=== PATIENT | female | born 1945 | race Hispanic/Latino ===

== ENCOUNTER 2017-06-04 06:12 | Inpatient (IN) | payer MEDICARE, MEDICAID ==
[2017-06-04] MEDS ORDERED: niCARdipine 20MG In NaCl 20 MG/200 ML BAG ONE (06:39)
[2017-06-04 06:46] LABS: Hematocrit 36.9 % (36.0-47.0); Mean Platelet Volume 8.5 fL (7.4-10.4); Red Blood Cell (RBC) Count 3.73 mill/uL (4.20-5.40); White Blood Cell (WBC) Count 10.4 thou/uL (4.8-10.8)
[2017-06-04 06:49] LABS: PTT 39.2 SEC (22.9-36.1)
[2017-06-04 06:55] LABS: ALT (SGPT) 12 U/L (8-55); AST (SGOT) 21 U/L (5-34); Alkaline Phosphatase 105 U/L (40-150); Anion Gap 14 mmol/L (10-20); BUN (Urea Nitrogen) 8 mg/dL (9.8-20.1); Bilirubin, Total 1.2 mg/dL (0.2-1.2); CK (CPK) 52 U/L (29-168); Calc. Creatinine Clearance 0 mL/min (70-130); Calcium 8.6 mg/dL (7.8-10.44); Carbon Dioxide 18 mmol/L (23-31); Chloride 108 mmol/L (98-107); Estimated GFR-MDRD 82; Globulin 4.3 g/dL (2.4-3.5); Protein, Total 7.1 g/dL (6.0-8.3)
[2017-06-04 07:00] LABS: Troponin I Less than 0.010 ng/mL (< 0.028)
[2017-06-04] MEDS ORDERED: Ondansetron HCl/PF 4 MG/2 ML Vial IVP PRN ×2 (07:00→10:51)
[2017-06-04] MEDS ORDERED: Ondansetron ODT 4 MG TAB SL PRN (07:00)
[2017-06-04 07:03] LABS: Band 2 % (5-11); Neutrophil 44 % (42-75)
[2017-06-04 07:31] LABS: Magnesium 1.4 mg/dL (1.6-2.6)
[2017-06-04 07:39] LABS: Phosphorus 1.7 mg/dL (2.3-4.7)
[2017-06-04 08:12] LABS: Bilirubin Negative (Negative); Blood, Urine Negative (Negative); Glucose, Urine (Dipstick) Negative (Negative); Ketone, Urine Trace mg/dL (Negative); Nitrite Negative (Negative); Protein, Urine (Dipstick) Negative (Neg-Trace)
--- NOTE | 2017-06-04 08:12 | CT ---
PRELIMINARY REPORT/[facility]/EMERGENCY AFTER HOURS PROCEDURE: EXAM: CT Head Without Intravenous Contrast EXAM DATE/TIME: Exam ordered 06/04/2017 6:17 AM CLINICAL HISTORY: 71 years old, female; Signs and symptoms; Weakness, facial; Patient HX: 71 presents to ed with left sided weakness and facial droop. Ems states that pt was last seen normal by family 15 min prior to t heir arrival. Family reports that pt is normally conversational but was unable to speak to them. TECHNIQUE: Axial computed tomography images of the head/brain without intravenous contrast. COMPARISON: No relevant prior studies available. FINDINGS: Brain: Normal. No hemorrhage. No significant white matter disease. No edema. Ventricles: Normal. No ventriculomegaly. Bones/joints: Normal. No acute fracture. Soft tissues: Normal. Sinuses: Unremarkable as visualized. No acute sinusitis. Mastoid air cells: Unremarkable as visualized. No mastoid effusion. IMPRESSION: No acute intracranial hemorrhage. Findings were discussed with Frank Ling at 06/04/2017 6:26 AM CDT. Thank you for allowing us to participate in the care of your patient. Dictated and Authenticated by: Baldomero Manuel MD 06/04/2017 6:26 AM Central Time ([place] \[place]\ [place]) FINAL REPORT CT BRAIN WITHOUT CONTAST: I agree with the preliminary report given by Dr. Baldomero Manuel of [facility]. POS: [facility]
--- NOTE | 2017-06-04 08:20 | CT ---
PRELIMINARY REPORT/[facility]/EMERGENCY AFTER HOURS PROCEDURE: Addendum created by Baldomero Manuel MD on 06/04/2017 6:52 AM Central Time ([place]) Findings were discussed with Frank Ling at 06/04/2017 6:52 AM CDT. Initial Report created on 06/04/2017 6:49 AM Central Time ([place]) EXAM: CT Brain Perfusion With Intravenous Contrast CLINICAL HISTORY: 71 years old, female; Signs and symptoms; Weakness, facial; Patient HX: stroke activation er 9; 71 presents to ed with left sided weakness and facial droop. Ems states that pt was last seen normal by family 15 min prior to their arrival. Family reports that pt is normally conversational but was unable to speak to them. TECHNIQUE: Axial computed tomography images of the brain with intravenous contrast using cerebral perfusion pro tocol. Post-processing parametric maps were created and reviewed. These include cerebral blood flow, cerebral blood volume and mean transit time. Coronal reformatted images were created and reviewed. CONTRAST: 50 mL of ISOVUE 370 administered intravenously. COMPARISON: No relevant prior studies available. FINDINGS: Cerebral blood flow: Normal. Symmetric with no defects. Cerebral blood volume: Normal. Symmetric. Mean transit time: Normal. No delayed perfusion. Brain: Normal. No hemorrhage. No edema. Normal enhancement. Ventricles: Normal. No ventriculomegaly. Bones/joints: No acute fracture. Soft tissues: Normal. Sinuses: Unremarkable as visualized. No acute sinusitis. Mastoid air cells: Unremarkable as visualized. No mastoid effusion. IMPRESSION: Normal brain perfusion CT. EXAM: CT Angiography Neck With Intravenous Contrast CLINICAL HISTORY: 71 years old, female; Signs and symptoms; Weakness, facial; Patient HX: stroke activation er 9; 71 presents to ed with left sided weakness and facial droop. Ems states that pt was last seen normal by family 15 min prior to their arrival. Family reports that pt is normally conversational but was unable to speak to them. TECHNIQUE: Axial computed tomographic angiography images of the neck with intravenous contrast using CT angiogr aphy protocol. Coronal reformatted images were created and reviewed. CONTRAST: 50 mL of ISOVUE 370 administered intravenously. COMPARISON: No relevant prior studies available. FINDINGS: VASCULATURE: Right common carotid artery: Normal. No significant stenosis. No dissection or occlusion. Right internal carotid artery: Normal. Extracranial segment is patent with no significant stenosis. No dissection or occlusion. Right external carotid artery: Normal. No occlusion. Right vertebral artery: Normal. No significant stenosis. No dissection or occlusion. Left common carotid artery: Normal. No significant stenosis. No dissection or occlusion. Left internal carotid artery: Normal. Extracranial segment is patent with no significant stenosis. N o dissection or occlusion. Left external carotid artery: Normal. No occlusion. Left vertebral artery: Normal. No significant stenosis. No dissection or occlusion. NECK: Bones/joints: No acute fracture. No dislocation. Soft tissues: Unremarkable as visualized. No mass. CAROTID STENOSIS REFERENCE USING NASCET CRITERIA: % ICA stenosis = (1 - narrowest ICA diameter/diameter of distal cervical ICA) x 100. Mild - <50% stenosis. Moderate - 50-69% stenosis. Severe - 70-94% stenosis. Near occlusion - 95-99% stenosis. Occluded - 100% stenosis. IMPRESSION: Normal neck CTA. EXAM: CT Angiography Head With Intravenous Contrast EXAM DATE/TIME: Exam ordered 06/04/2017 6:22 AM CLINICAL HISTORY: 71 years old, female; Signs and symptoms; Weakness, facial; Patient HX: stroke activation er 9; 71 presents to ed with left sided weakness and facial droop. Ems states that pt was last seen normal by family 15 min prior to their arrival. Family reports that pt is normally conversational but was unable to speak to them. TECHNIQUE: Axial computed tomographic angiography images of the head with intravenous contrast using CT angiogr aphy protocol. CONTRAST: 50 mL of ISOVUE 370 administered intravenously. COMPARISON: No relevant prior studies available. FINDINGS: Right internal carotid artery: No acute findings. Intracranial segment is patent with no significant stenosis. No aneurysm. Right anterior cerebral artery: Normal. No occlusion or significant stenosis. No aneurysm. Right middle cerebral artery: Normal. No occlusion or significant stenosis. No aneurysm. Right posterior cerebral artery: Normal. No occlusion or significant stenosis. No aneurysm. Right vertebral artery: Unremarkable as visualized. Left internal carotid artery: No acute findings. Intracranial segment is patent with no significant stenosis. No aneurysm. Left anterior cerebral artery: Normal. No occlusion or significant stenosis. No aneurysm. Left middle cerebral artery: Normal. No occlusion or significant stenosis. No aneurysm. Left posterior cerebral artery: Normal. No occlusion or significant stenosis. No aneurysm. Left vertebral artery: Unremarkable as visualized. Basilar artery: Normal. No occlusion or significant stenosis. No aneurysm. IMPRESSION: Normal head CTA. Thank you for allowing us to participate in the care of your patient. Dictated and Authenticated by: Baldomero Manuel MD 06/04/2017 6:49 AM Central Time ([place] \[place]\ [place]) FINAL REPORT PRE AND POSTCONTRAST CTA IMAGES CAROTID AND BRAIN: DATE: 06/04/17. HISTORY: Stroke, left-sided weakness, and facial droop. FINDINGS: Contrast-enhanced CTA of the carotid and intracranial structures performed. Two-D and 3D reconstruc kavita images performed on an independent 3D work station. I concur with the dictation from [facility]. No significant evidence of aortic or carotid or intracranial vascular abnormality seen. Normal flow is seen in these major intracranial vessels. Vertebrobasilar arteries are unremarkable. Brain perfusion is unremarkable with no significant evidence of perfusion abnormalities noted. IMPRESSION: Normal CTA of carotid and brain. POS: [facility]
[2017-06-04] MEDS ORDERED: Bisacodyl 10 MG SUPP PR PRN (10:42)
[2017-06-04] MEDS ORDERED: Acetaminophen 650 MG Suppository PR PRN (10:42)
[2017-06-04] MEDS ORDERED: Labetalol HCl 100 MG/20 ML VIAL SLOW IVP PRN (10:42)
[2017-06-04] MEDS ORDERED: Nitroglycerin 0.4 MG TAB (25 Tab Bottle) PO PRN (10:49)
[2017-06-04] MEDS ORDERED: Ondansetron ODT 4 MG TAB PO PRN (10:51)
[2017-06-04] MEDS ORDERED: Calcium Carbonate 500 MG ChewTAB PO PRN (10:51)
[2017-06-04] MEDS ORDERED: Dextrose 5% in Water 1,000 ML IV PRN (10:51)
[2017-06-04] MEDS ORDERED: Dextrose 50% Abboject 50 ML SYRINGE SLOW IVP PRN (10:51)
[2017-06-04] MEDS ORDERED: Artificial Tears 18 DROP/0.9 ML EA EYE PRN (10:57)
[2017-06-04] MEDS ORDERED: Potassium Phosphate 15 MMOL in Sodium Chloride 0.9% 250 ML 250 ML IVPB SCH (11:00)
[2017-06-04] MEDS ORDERED: Magnesium Sulfate 4 GM in Sodium Chloride 0.9% 250 ML 250 ML IVPB SCH (11:00)
--- NOTE | 2017-06-04 11:10 | HP ---
DATE OF ADMISSION: 06/04/2017 PRIMARY CARE PHYSICIAN: Dr. Levin at [facility]. CHIEF COMPLAINT: Stroke-like symptoms. HISTORY OF PRESENT ILLNESS: The patient is a 71-year-old female with diabetes mellitus typ e 2, hypertension, and hyperlipidemia who presented to the emergency room with above complaints. Angus alessandro is somewhat poor historian and history was obtained from the two daughters Ciera and Lizeth at t he bedside, both are DPOA. Patient is FULL CODE. The patient currently lives at home with them. S he ambulates with the help of walker. Most of the time, she spends on wheelchair. The patient was found to have new onset of left-sided weakness and facial droop this morning for [facility] was called. Her symptoms started 15 minutes prior to EMS arrival. She also had slurring of speech along with some confusion. Again, not much information is available from the patient. There is no headache, double vision, seizure, tongue biting or incontinence reported. In the emergency room, initial vital signs showed temperature 99, respirations 20, pulse of 74, bloo d pressure of 164/90 with O2 saturation of 98% on room air. Her CT scan of the brain was negative f or acute CVA. No significant white matter disease noted. CT angiogram of the head and neck was neg ative for the hemodynamically significant stenosis. She received tPA in the emergency room. Her NI H score in the ER was 28. Cardene drip was initially started prior to initiation of tPA. It was la ter discontinued. Her EKG showed sinus rhythm with nonspecific ST-T wave changes. PAST MEDICAL HISTORY: 1. Recent hospitalization at [facility] for altered mentation. She was diagno sed with UTI. EEG was consistent with encephalopathy pattern. She was also started on Keppra for p ossible seizure. She was started on 81 mg aspirin. MRA of the brain, ultrasound of carotid arterie s bilaterally were negative. She was hospitalized from 04/01/2017-04/04/2017. 2. COPD. 3. Hyperlipidemia. 4. Obstructive sleep apnea. 5. Hypertension. 6. Hypothyroidism. 7. Diabetes mellitus type 2. 8. Seizure disorder. 9. Degenerative joint disease. 10. Sarcoidosis. 11. Claustrophobia. PAST SURGICAL HISTORY: 1. Appendectomy. 2. Carpal tunnel release. 3. Cataract surgery. 4. Right elbow surgery. 5. Hip surgery. 6. Hysterectomy. 7. Shoulder surgery. 8. Splenectomy. 9. Wrist surgery. ALLERGIES: The patient is allergic to PROPOXYPHENE that causes itching. CURRENT HOME MEDICATIONS: To be verified. The family to get the accurate list of medications. SOCIAL HISTORY: As discussed above. No smoking, alcohol or drug use. FAMILY HISTORY: Father with COPD and tuberculosis. Diabetes runs in several family members. REVIEW OF SYSTEMS: Cannot be reliably obtained from the patient due to current cognitive status. PHYSICAL EXAMINATION: VITAL SIGNS: As discussed above. GENERAL: A 71-year-old female in no apparent distress. Somewhat anxious appearing. HEENT: Head atraumatic, normocephalic. Sclerae are anicteric. Dry mucous membrane, no oral lesion . Pupils were reacting to light. No facial droop noted. NECK: Supple, no JVD, no carotid bruit. LUNGS: Clear to auscultation bilaterally. HEART: S1, S2 present. Regular rate and rhythm. No rubs or gallops appreciated. ABDOMEN: Soft, nontender. Bowel sounds present. There was a scar from previous hernia surgery. T here is a chronic wound at the bottom of the scar. SKIN: As discussed above. LYMPH NODES: No palpable lymph nodes in the neck. NEUROLOGIC: Exam was limited due to current cognitive status. There is left-sided weakness around 1-2/5. No significant facial droop noted. Pupils were equally reacting to light. Gait was not ass essed. Sensation to touch was normal bilaterally. Tone was decreased. Speech, patient had some ex pressive aphasia. Again, patient has intermittent confusion. PSYCHIATRY: As discussed above. LYMPH NODES: No palpable lymph nodes in the neck. PERIPHERAL VASCULAR: Radial pulses palpable bilaterally. MUSCULOSKELETAL: No joint swelling or tenderness. LABORATORY DATA AND X-RAY FINDINGS: 1. CBC showed WBC 10.4 with hemoglobin 12, hematocrit 36.9, and platelets 329. 2. INR 1.5, PT 18, PTT 39.2. Chemistries showed sodium 137, potassium 2.8, chloride 108, bicarbona te 18, BUN of 8, and creatinine 0.71. 3. Phosphorus 1.7, magnesium 1.4, albumin of 2.8. 4. Fasting lipid profile showed cholesterol 135, triglyceride 107, LDL 89, HDL 25. 5. Urinalysis showed greater than 1.[address] scan of the brain by my review as discussed above. EKG by my review as discussed above. IMPRESSION AND PLAN: 1. 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 Patient will be monito red in the critical care unit. Neurology will be consulted. Critical Care will be consulted as chay polk. We will continue frequent neuro checks. MRI of the brain will be ordered. Patient was started on aspirin 81 mg daily in 03/2017 at [facility]. We will discuss with Neurology if this can be changed to either Aggrenox or Plavix. Her fasting lipid profile was reviewed. We will also add st atin. 2. Diabetes mellitus type 2. We will start her on insulin sliding scale. Confirm other home medic ations. 3. Multiple electrolyte imbalance. Patient has hypokalemia, hypophosphatemia, and hypomagnesemia. This will be corrected. 4. Dehydration. Patient will be placed on IV fluids. 5. Obesity with a body mass index of 35. 6. Hypertension, we will monitor. 7. Depression without any suicidal ideation. 8. Chronic obstructive pulmonary disease. We will continue nebulizer treatments. 9. Seizure disorder. We will continue Keppra. 10. Chronic pain syndrome. 11. Hypothyroidism. We will continue levothyroxine. 12. Degenerative joint disease. 13. History of drug-induced Parkinson's disease. Patient used to be on Reglan that was discontinue d in 03/2017 at [facility]. 14. History of sarcoidosis. 15. Obstructive sleep apnea. We will resume home continuous positive airway pressure. 16. Gastroesophageal reflux disease. We will add proton pump inhibitors. 17. Physical deconditioning. 18. Chronic nonhealing wound from the hernia surgery. Wound Care will be consulted. 19. Claustrophobia. We will add Ativan prior to MRI. 20. Deep venous thrombosis prophylaxis. We will start Lovenox 24 hours after tissue plasminogen ac tivator. 21. Plan of care was discussed with the patient and the family at the bedside. They stated underst anding. 22. The patient will require at least 2-3 days for stabilization.
[2017-06-04] MEDS ORDERED: Famotidine/PF 20 mg/2ml Vial SLOW IVP SCH (11:30)
[2017-06-04] MEDS: NS 0.9% w/ 20 MEQ KCL 1,000 ML IV SCH ×3 (11:37→23:34)
[2017-06-04] MEDS ORDERED: Lorazepam 2 MG/ML VIAL SLOW IVP SCH (11:45)
[2017-06-04] MEDS ORDERED: ISOVUE-370 76%-LOCM 1 ML ONE ×2 (14:23)
--- NOTE | 2017-06-04 14:45 | RAD ---
ACUTE ABDOMINAL SERIES: 06/04/2017 PROVIDED CLINICAL HISTORY: Nausea. FINDINGS: Frontal chest radiograph demonstrates a normal cardiac and mediastinal silhouette. Vascular calcifi cation is seen involving the aortic arch. There is no focal consolidation, pleural fluid, or pneumo thorax apparent. Supine and [id number] decubitus radiographs demonstrate a nonspecific bowel gas pattern. There is no evidence for pneumoperitoneum. Contrast material is seen within the renal collecting systems, related to recent CT examination. A sclerotic focus is seen in the right iliac bone, likely reflec ting a bone island. Degenerative changes are seen involving the spine. There are partially visuali zed changes of left hip arthroplasty. IMPRESSION: 1. Nonspecific bowel gas pattern. 2. No evidence for an acute cardiopulmonary process. POS: [facility]
--- NOTE | 2017-06-04 15:22 | CON ---
DATE OF CONSULTATION: 06/04/2017 SERVICE: Pulmonary Medicine. REASON FOR CONSULTATION: ICU patient. HISTORY OF PRESENT ILLNESS: The patient is a 71-year-old female with past medical history significant for a recent TIA. She was worked up in [facility] recently with CT of the head, MRI, and imaging of the neck. They did not identify anything that was abnormal. Her neurologic condition essentially resolved. At that time, she had some left-sided issues. She once again presented to this emergency department and had onset of the same neurologic deficit. She got a CT of the head and was given some tPA. She is now being observed in the ICU. She has no specific complaints of fevers, chills, nausea, vomiting, or chest discomfort. Prior to her recurrent neurologic change, the patient was once again in her usual state of health. PAST MEDICAL HISTORY: 1. Dyslipidemia. 2. Hypertension. 3. Obstructive sleep apnea. 4. COPD. 5. Hypothyroidism. 6. Type 2 diabetes mellitus. 7. Seizure disorder. 8. Degenerative joint disease. 9. Sarcoidosis. 10. Claustrophobia. PAST SURGICAL HISTORY: 1. Appendectomy. 2. Carpal tunnel surgery. 3. Cataract surgery. 4. Right elbow surgery. 5. Hip surgery. 6. Hysterectomy. 7. Shoulder surgery. 8. Splenectomy. 9. Wrist surgery. ALLERGIES: PROPOXYPHENE causes itching. MEDICATIONS: List of her inpatient medicines was reviewed. No updates were made at this time. SOCIAL HISTORY: Negative for alcohol, tobacco or illicit drug use. She has no exposures to chemicals, dust asbestos or tuberculosis, so far as we are aware of. FAMILY HISTORY: Noncontributory. REVIEW OF SYSTEMS: General, head, ears, eyes, nose, throat, cardiovascular, respiratory, GI, , musculoskeletal, neurologic and skin is negative except as mentioned in the HPI. PHYSICAL EXAMINATION: VITAL SIGNS: Afebrile, pulse 67, blood pressure 144/57, respirations 21, saturation 99% on room air. GENERAL: Patient is awake, alert, in no apparent distress. LUNGS: Excellent air entry bilaterally with no prolonged expiratory phase, wheezing, rhonchi or crackles. HEART: Normal rate, regular. ABDOMEN: Soft, nontender, nondistended, bowel sounds positive. MUSCULOSKELETAL: No cyanosis or clubbing. No pitting in the bilateral lower extremities. NEUROLOGIC: Grossly nonfocal. EXTREMITIES: Left upper extremity weakness is almost entirely functional so far as I can tell. The patient essentially is unable to extend flex her left forearm when I prompted her. That being said, when I distracted with different movement, she has excellent tone and strength in that extremity. LABORATORY DATA: Potassium 2.8, bicarbonate 18. Basic metabolic profile and liver function studies are otherwise unremarkable. Magnesium and phosphorus are low. Liver function studies are unremarkable. Cardiac enzymes are negative. INR 1.5. CBC is grossly unremarkable. She has 2% bands. Urinalysis is unremarkable. IMAGIN. CT of the brain demonstrates no acute intracranial abnormality. 2. CTA of the head and neck demonstrates no obvious vascular insufficiency/ abnormality. MRI of the brain is pending. 3. Echocardiogram demonstrates 60%-65% ejection fraction. No evidence of smoke or thrombus in the left atrium or left atrial appendage. This was not a bubble study. ASSESSMENT: 1. Spell, status post tissue plasminogen activator. 2. Functional neurologic examination. 3. Hypokalemia. PLAN: The patient will remain in the ICU for observation for a period of 24 hours post-tPA. In the morning, if she remains stable from a hemodynamic and respiratory perspective. She will be stable for transition to the floor. In the meantime, physical therapy and occupational therapy will be obtained. Pulmonary Critical Care will continue to follow for the time being. [facility]
--- NOTE | 2017-06-04 15:57 | MRI ---
MRI BRAIN WITHOUT CONTRAST: Date: 06/04/17 HISTORY: 71-year-old female with left-sided weakness and facial droop. FINDINGS: Correlation is made with the CT brain and CTA head/neck of earlier today. No restricted diffusion is seen. Changes of cortical atrophy and small vessel ischemic disease are p resent. The ventricular size is appropriate and the basilar cisterns are patent. No transcortical in farct, hemorrhage, midline shift, or abnormal extra-axial fluid collections are seen. There is minim al mucosal disease in the paranasal sinuses. IMPRESSION: No MR evidence of acute intracranial process. POS: [facility]
[2017-06-04] MEDS: Potassium Chloride 20 MEQ TAB PO SCH ×2 (17:59→20:42)
[2017-06-04] MEDS: Insulin Regular 300 UNITS/3 ML VIAL SC PRN (18:35)
[2017-06-04] MEDS: Docusate 100 MG CAP PO SCH (20:42)
[2017-06-04] MEDS: Famotidine 20 MG TAB PO SCH (20:43)
[2017-06-04] MEDS: Famotidine/PF 20 mg/2ml Vial SLOW IVP SCH (20:43)
--- NOTE | 2017-06-04 20:55 | CON ---
NEUROLOGY CONSULTATION NOTE DATE OF CONSULTATION: 06/05/2017 CONSULTING PHYSICIAN: Hospitalist Service. IMPRESSION: 1. Psychogenic stroke-like symptoms. 2. Diabetes. 3. Hypertension. 4. Hyperlipidemia. 5. Chronic obstructive pulmonary disease. PLAN: 1. Monitor until the TPA washout at 24 hours. 2. The patient can be transferred to the floor or consider referral to the Behavioral Health Unit. HISTORY OF PRESENT ILLNESS: Ms. Hernandez presented with stroke-like symptoms yesterday evening. S he had a CTA and CT of the brain, which were both negative. She was given TPA and transferred to [facility] Intensive Care Unit. Since admission, she has had her MRI of the brain, which failed to reveal an y evidence of ischemic or hemorrhagic change. The patient continues to refuse to talk. PAST MEDICAL HISTORY: As listed above. ALLERGIES: None. SOCIAL HISTORY: Unremarkable. FAMILY HISTORY: Noncontributory. REVIEW OF SYSTEMS: Reported history of some depression and questionable seizures. PHYSICAL EXAMINATION: VITAL SIGNS: Blood pressure 159/55, pulse 69, respirations 18 and saturation 99%. HEENT: Pupils are equal and reactive. Conjunctivae clear. Oropharynx clear. NEUROLOGIC: She is awake and lying in bed in no apparent distress. She mumbled the word fine with the most I could get her to speak. She followed most commands without any difficulty. There was no facial droop present. There was no lateralized weakness on motor strength testing. No abnormal mo vements were seen. Gait was not tested due to the TPA. SUMMARY: Overall, this appears to be a psychogenic process causing this inability to speak. If she continues to display these symptoms tomorrow, I would do an EEG for completeness. Otherwise, I donny pect that this is a stress reaction.
[2017-06-04] MEDS: Acetaminophen 325 MG TAB PO PRN (22:17)
[2017-06-04] MEDS ORDERED: ALPRAZolam 0.25 MG TAB PO SCH (23:30)
[2017-06-05 08:11] LABS: Anion Gap 11 mmol/L (10-20); BUN (Urea Nitrogen) 12 mg/dL (9.8-20.1); Calc. Creatinine Clearance 101 mL/min (70-130); Carbon Dioxide 15 mmol/L (23-31); Chloride 118 mmol/L (98-107); Estimated GFR-MDRD 83; Magnesium 2.3 mg/dL (1.6-2.6); Phosphorus 3.2 mg/dL (2.3-4.7)
[2017-06-05] MEDS ORDERED: Sodium Chloride 0.45% 1,000 ML IV SCH (08:30)
[2017-06-05] MEDS ORDERED: Enoxaparin Sodium 40 MG/0.4 ML SYRINGE SC SCH (09:00)
[2017-06-05] MEDS ORDERED: Aspirin 325 mg Enteric Coated Tablet PO SCH (09:00)
[2017-06-05] MEDS ORDERED: Aspirin 300 MG Suppository PR SCH (09:00)
--- NOTE | 2017-06-05 09:52 | PRG ---
DATE OF SERVICE: 06/05/2017 SERVICE: Pulmonary Medicine. INTERVAL HISTORY: The patient is doing okay from a respiratory standpoint. She currently denies an y fevers, chills, nausea, vomiting, chest pain, shortness of breath. Otherwise, there is no interva l change to her condition. She continues to mumble her words. She also demonstrates diffuse weakne ss, but does have excellent tone. I cannot really tell a difference between her left and right side at this time. PHYSICAL EXAMINATION: VITAL SIGNS: Afebrile, pulse 69, blood pressure 129/61, respirations 14, saturation 95% on room air . GENERAL: The patient is awake and alert, in no apparent distress. LUNGS: Excellent air entry. There is no prolonged expiratory phase, wheezing, rhonchi or crackles. HEART: Normal rate, regular. ABDOMEN: Soft, nontender, nondistended. Bowel sounds positive. MUSCULOSKELETAL: No cyanosis or clubbing. No pitting in the bilateral lower extremities. NEUROLOGIC: Grossly nonfocal. IMAGIN. MRI demonstrates no acute intracranial abnormality. 2. Echocardiogram demonstrated ejection fraction of 60%-65%. Otherwise, the echocardiogram is norm al. There is no left ventricular thrombus. ASSESSMENT: 1. Spell, status post tissue plasminogen activator. 2. Functional neurologic exam. PLAN: At this point, the patient is stable for transition out of the ICU to the neuro unit. She wi ll continue working with physical therapy and occupational therapy. The EEG is going to be performe d today just because she continues to mumble these words appropriately. When she goes to the floor, she will have no further requirement for Pulmonary or Critical Care opinion and we will sign off.
[2017-06-05] MEDS: Docusate 100 MG CAP PO SCH ×2 (10:02→21:19)
[2017-06-05] MEDS: Aspirin 81 mg Enteric Coated Tablet PO SCH (10:02)
--- NOTE | 2017-06-05 11:59 | PRG ---
DATE OF SERVICE: 06/05/2017 SUMMARY: A 71-year-old female with diabetes mellitus type 2, hypertension, hyperlipidemia, and obst ructive sleep apnea, presented yesterday with stroke like symptoms. She received TPA. SUBJECTIVE: The patient denies any new complaints at this time. She continues to have weakness iftikhar nly on the left side. Speech is still somewhat slurry. No new focal deficits reported. She denies any headaches or seizures. EEG was performed today. Telemetry monitoring by my review showed sinus rhythm. CURRENT MEDICATIONS: Reviewed. The patient is on Lovenox for DVT prophylaxis along with low dose a spirin, Keppra, and Toprol-XL. PHYSICAL EXAMINAITON: GENERAL: A 71-year-old female, in no apparent distress. VITAL SIGNS: Temperature 97.8, pulse 71, blood pressure of 146/61 with O2 saturation of 96% on room air. LUNGS: Clear to auscultation bilaterally. HEART: S1, S2 present. Regular rate and rhythm. ABDOMEN: Soft, nontender, bowel sounds present. GENITOURINARY: Vergara catheter noted. NEUROLOGIC: No new focal deficit. Left side weakness around 2-3/5. Sensation to touch was normal bilaterally. [id number] test was normal on the right. Could not be done on the left due to pro found weakness. LABORATORY FINDINGS AND IMAGING: CBC showed WBC 10.4 with hemoglobin 12, platelet of 329. Chemistr ies showed sodium 139, potassium 4.8, chloride 118, bicarbonate 15, BUN 12, creatinine 0.7. MRI of the brain was negative for acute CVA (I reviewed the MRI). Echocardiogram showed normal left ventri cular ejection fraction of 60%-65%. IMPRESSION: 1. Suspected acute cerebrovascular accident, status post TPA. MRI of the brain was negative. We w ill continue aspirin with statins. We will discuss with Neurology if aspirin needs to change to Ciarra vix or Aggrenox. We will continue frequent neuro checks. The patient will be transferred to the [facility] unit. 2. Diabetes mellitus type 2. We will continue sliding scale. 3. Multiple electrolyte imbalance including hypokalemia, hypophosphatemia, and hypomagnesemia is co rrected. 4. Dehydration. The patient received IV fluids. This was discontinued today morning. 5. Swallow dysfunction. The patient is currently on modified diet. 7. Obesity with a BMI 35. 8. Hypertension. We will continue to monitor. Continue Toprol-XL that was started today. 9. Depression. We will resume her home medications. 10. Chronic obstructive pulmonary disease. We will continue nebulizer treatment. 11. Seizure disorder. Continue Keppra. 12. Chronic pain syndrome. 13. Hypothyroidism, on levothyroxine. 14. History of drug-induced Parkinson's disease. 15. Degenerative joint disease. 16. Sarcoidosis. 17. Obstructive sleep apnea. 18. Gastroesophageal reflux disease. 19. Physical deconditioning. 20. Chronic nonhealing wound from the hernia surgery. Wound Care following. 21. Disposition: Probably in 2-3 days. The patient will probably require either fpc o r inpatient rehabilitation. 22. Plan of care was discussed with the patient and the family at the bedside. They stated underst anding.
[2017-06-05] MEDS: Insulin Regular 300 UNITS/3 ML VIAL SC PRN ×2 (12:16→21:21)
[2017-06-05 13:50] VITALS: BMI 35.2
[2017-06-05] MEDS: Famotidine 20 MG TAB PO SCH (16:12)
[2017-06-05] MEDS: Famotidine/PF 20 mg/2ml Vial SLOW IVP SCH (16:12)
[2017-06-05] MEDS: levETIRAcetam 500 MG TAB PO SCH (21:19)
[2017-06-05] MEDS: Enoxaparin Sodium 40 MG/0.4 ML SYRINGE SC SCH (21:20)
[2017-06-05] MEDS ORDERED: ALPRAZolam 0.25 MG TAB PO SCH (22:00)
[2017-06-06] MEDS: Insulin Regular 300 UNITS/3 ML VIAL SC PRN (00:23)
[2017-06-06 05:28] LABS: Anion Gap 9 mmol/L (10-20); BUN (Urea Nitrogen) 8 mg/dL (9.8-20.1); BUN/Creatinine Ratio 11.27; Calc. Creatinine Clearance 100 mL/min (70-130); Calcium 8.6 mg/dL (7.8-10.44); Carbon Dioxide 20 mmol/L (23-31); Chloride 115 mmol/L (98-107); Estimated GFR-MDRD 82; Magnesium 1.9 mg/dL (1.6-2.6); Phosphorus 3.2 mg/dL (2.3-4.7)
[2017-06-06] MEDS: Levothyroxine Sodium 88 MCG TAB PO SCH (05:33)
[2017-06-06] MEDS: Aspirin 81 mg Enteric Coated Tablet PO SCH (10:16)
[2017-06-06] MEDS: Docusate 100 MG CAP PO SCH ×2 (10:17→22:02)
[2017-06-06] MEDS: Folic Acid 1 MG TAB PO SCH (10:17)
[2017-06-06] MEDS: levETIRAcetam 500 MG TAB PO SCH ×2 (10:19→22:02)
[2017-06-06] MEDS: FLUoxetine HCl 20 MG CAP PO SCH ×2 (10:22→22:02)
--- NOTE | 2017-06-06 11:34 | PDOC.PN ---
- Subjective Encounter Start Date: 06/06/17 Encounter Start Time: 11:00 Patient seen and examined. No new complaints. No overnight events. Expressive aphasia, Left side still weak. - Objective Resuscitation Status: Resuscitation Status FULL:Full Resuscitation MAR Reviewed: Yes Vital Signs & Weight: Vital Signs (12 hours) Temp Pulse Resp BP Pulse Ox 06/06/17 07:25 97.7 F 65 16 134/65 96 06/06/17 03:56 98.2 F 64 22 H 132/63 96 06/05/17 23:41 98.2 F 63 24 H 149/67 H 97 Weight Admit Weight 186 lb Weight 217 lb 1.6 oz Most Recent Monitor Data Heart Rate from ECG 68 NIBP 162/72 NIBP BP-Mean 122 Respiration from ECG 18 SpO2 99 I&O: 06/05/17 06/06/17 06/07/17 06:59 06:59 06:59 Intake Total 2367 1140 Output Total 865 2060 Balance 1502 -920 Result Diagrams: 06/04/17 06:31 06/06/17 04:34 Additional Labs: Accuchecks 06/06/17 06/06/17 06/05/17 04:12 00:11 20:26 POC Glucose 126 H 173 H 163 H 06/05/17 06/05/17 17:08 12:04 POC Glucose 139 H 230 H EKG Reviewed by me: Yes (Tele SR) Phys Exam - Physical Examination Constitutional: NAD Respiratory: no wheezing, no rhonchi Cardiovascular: RRR, no rub Gastrointestinal: soft, non-tender, positive bowel sounds Musculoskeletal: no edema Neurological: moves all 4 limbs No new focal deficits. Left side still weak 3/5 Psychiatric: A&O x 3 Dx/Plan - Plan IMPRESSION: 1. Suspected acute cerebrovascular accident, status post TPA. MRI of the brain was negative. on aspirin with statins. 2. Diabetes mellitus type 2. on sliding scale. 3. Multiple electrolyte imbalance including hypokalemia, hypophosphatemia, and hypomagnesemia. replaced 4. Dehydration. improved. 5. Swallow dysfunction. on modified diet. 7. Obesity with a BMI 35. 8. Hypertension. on Toprol-XL 9. Depression. 10. Chronic obstructive pulmonary disease. on nebulizer treatment. 11. Seizure disorder. on Keppra. 12. Chronic pain syndrome. 13. Hypothyroidism, on levothyroxine. 14. History of drug-induced Parkinson's disease. 15. Degenerative joint disease. 16. Sarcoidosis. 17. Obstructive sleep apnea. 18. Gastroesophageal reflux disease. 19. Physical deconditioning. 20. Chronic nonhealing wound from the hernia surgery. Wound Care following. PLAN: * Cont ASA/Statins * Consult Neuro navigation teacher for second opinion per family request * Cont other home meds as below * Cont therapy Review of Systems - Review of Systems Constitutional: negative: Fever, Chills, Sweats, Weakness, Malaise, Other Respiratory: negative: Cough, Dry, Shortness of Breath, Hemoptysis, SOB with Excertion, Pleuritic Pain, Sputum, Wheezing Cardiovascular: negative: Chest Pain, Palpitations, Orthopnea, Paroxysmal Noc. Dyspnea, Edema, Light Headedness, Other Gastrointestinal: negative: Nausea, Vomiting, Abdominal Pain, Diarrhea, Constipation, Melena, Hematochezia, Other - Medications/Allergies Allergies/Adverse Reactions: Allergies Allergy/AdvReac Type Severity Reaction Status Date / Time No Known Allergies Allergy Unverified 06/04/17 09:14 Medications: Current Medications Acetaminophen (Tylenol) 650 mg PO Q6H PRN PRN Reason: Headache/Fever or Pain Last Admin: 06/04/17 22:17 Dose: 650 mg Acetaminophen (Tylenol) 650 mg SD Q6H PRN PRN Reason: Headache/Fever or Pain Albuterol/Ipratropium (Duoneb) 3 ml NEB [id number] PRN PRN Reason: SOB &/or Wheezing Artificial Tears (Tears Naturale) 0 drop EA EYE PRN PRN PRN Reason: Dry Eyes Aspirin (Ecotrin) 81 mg PO DAILY [facility] Last Admin: 06/06/17 10:16 Dose: 81 mg Bisacodyl (Dulcolax) 10 mg SD DAILYPRN PRN PRN Reason: Constipation Calcium Carbonate (Tums) 1,000 mg PO Q4H PRN PRN Reason: Heartburn or Indigestion Dextrose/Water (Dextrose 50%) 25 gm SLOW IVP PRN PRN PRN Reason: Hypoglycemia Docusate Sodium (Colace) 100 mg PO BID [facility] Last Admin: 06/06/17 10:17 Dose: 100 mg Enoxaparin Sodium (Lovenox) 40 mg SC 2100 [facility] Last Admin: 06/05/17 21:20 Dose: 40 mg Fluoxetine HCl (Prozac) 20 mg PO [facility] Last Admin: 06/06/17 10:22 Dose: Not Given Folic Acid (Folvite) 5 mg PO DAILY [facility] Last Admin: 06/06/17 10:17 Dose: 5 mg Glucagon (Glucagon) 1 mg IM PRN PRN PRN Reason: Hypoglycemia Dextrose/Water (D5w) 1,000 mls @ 0 mls/hr IV .Q0M PRN; As Directed PRN Reason: Hypoglycemia Insulin Human Regular (Humulin R) 0 units SC .MILD SLIDING SCALE PRN PRN Reason: Mild Correctional Scale Last Admin: 06/06/17 00:23 Dose: 2 unit Labetalol HCl (Normodyne) 10 mg SLOW IVP Q2H PRN PRN Reason: SBP > 180 Levetiracetam (Keppra) 500 mg PO BID [facility] Last Admin: 06/06/17 10:19 Dose: 500 mg Levothyroxine Sodium (Synthroid) 88 mcg PO 0600 [facility] Last Admin: 06/06/17 05:33 Dose: 88 mcg Metoprolol Succinate (Toprol Xl) 25 mg PO BID [facility] Last Admin: 06/06/17 10:20 Dose: 25 mg Nitroglycerin (Nitrostat) 0.4 mg PO Q5MIN PRN PRN Reason: Chest Pain Ondansetron HCl (Zofran Odt) 4 mg PO Q6H PRN PRN Reason: Nausea/Vomiting Ondansetron HCl (Zofran) 4 mg IVP Q6H PRN PRN Reason: Nausea/Vomiting Rosuvastatin Calcium (Crestor) 10 mg PO [facility] Last Admin: 06/05/17 21:19 Dose: 10 mg
--- NOTE | 2017-06-06 21:08 | CON ---
DATE OF CONSULTATION: 06/06/2017 REFERRING PHYSICIAN: Gordon Rodriguez MD REASON FOR CONSULTATION: Second opinion, family request for aphasia and left-sided weakness. HISTORY OF PRESENT ILLNESS: Ms. Hernandez is a pleasant 71-year-old female who has been c onsidered for a second opinion for evaluation of aphasia and left-sided weakness. History is obtain ed from daughter who was presented at bedside. Daughter reports that on day before yesterday, cornelio shannon was at home and had a sudden onset of left-sided numbness and tingling. She also started complai antony of being weak on her left side, this prompted her to call EMS. She was brought to [facility]. On arrival here, she started having difficulty with talking to the point that she became c ompletely mute. At that time, stroke alert was initiated. The patient had a CT head without contra st and CT angiogram of the head and neck as well as CT perfusion scan, which were apparently normal. She was given IV tPA as she was within tPA window. Since being admitted to the hospital, she has noted an improvement in her speech as well as left upper extremity weakness; however, daughter repor ts that she continues to be weak on her left lower extremity. She is also having slurring of her sp eech. She did have an MRI brain without contrast, which showed no evidence of acute ischemic infarc t. It showed mild chronic microvascular ischemic changes, otherwise unremarkable. The patient was seen by Dr. Don Dominguez who felt the symptoms are likely secondary to stress reaction. Daughter re ports that patient was admitted to [facility] about a month ago with episode of aphasi a and left-sided weakness at that time. She had an MRI brain done which was apparently normal. She also had an EEG done for which she does not know the result of at this time. She states that her s ymptoms started improving after 2-3 days of being admitted to the hospital, they had diagnosed her w ith a TIA and started on aspirin for secondary stroke prevention and discharged to her home. The darryn pressley reports the patient has a history of severe depression. Her in August of last year. She notes that her very close friend has severe illness and is currently on hospice care. Shruti rodriguez reports that the patient has mentioned to her on couple of occasions where she has complaine d why her left her without her and has mentioned that why do not god just take her and not torin wall herself through this life. Daughter notes that she has been losing interest in activities that she has used to enjoy. She has become very withdrawn and she has noted a decreased appetite and poo r sleep recently. 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 She notes that during tho se spells of seizures, she would have this type of episodes of weakness and speech problems, it woul d last for 1-2 weeks and then slowly improved over time. PHYSICAL EXAMINATION: VITAL SIGNS: Blood pressure of 158/69, pulse of 60, temperature of 99, respirations of 18, O2 sats of 97% on room air. GENERAL: A well-developed, well-nourished female, resting in bed, in no apparent distress . RESPIRATORY: Clear to auscultation bilaterally. CARDIOVASCULAR: Regular rate and rhythm. NEUROLOGIC: Mental status: The patient is awake, alert, oriented x3. Speech and language: Fluent speech. Cranial nerves: Pupils are 3 mm and reactive. Visual wong are intact. Extraocular mus cles are intact. No nystagmus is noted. Face is symmetric. Tongue and uvula are midline. Motor e xam showed normal tone and bulk with 4/5 strength in both upper and lower extremities. There is evelin e giveaway weakness in both upper and lower extremities. Left lower extremity is much weaker than t he right lower extremity with very poor effort on the left lower extremity. Sensory: Sensation is intact and symmetric. Deep tendon reflexes 1-2+ reflexes in both upper and lower extremities. Cheyanne nski: Plantar responses flexion bilaterally. Coordination intact to [id number] tapping kaylan aterally. IMAGING STUDIES: Reviewed, which included MRI of brain without contrast, CT angiogram of the head a nd neck, their findings are as noted on the HPI section. Echocardiogram results were reviewed, whic h showed EF of 60% to 65% without any wall motion abnormality or intracardiac mass or thrombus. IMPRESSION: 1. Major depressive. 2. Left-sided weakness, likely conversion disorder. 3. Dysarthria, likely due to conversion disorder. ASSESSMENT AND PLAN: Ms. Hernandez is a pleasant 71-year-old female who presented with an acute onset of left-sided weakness and aphasia. Her symptoms are slowly improving. She had an ext ensive workup done, which included MRI of brain without contrast, CT angiogram of the head and neck, and echocardiogram which are all essentially unremarkable. In my opinion, this recent event is lik chano conversion disorder due to underlying severe depression. Based on the description, the patient' s daughter mentioned, she is probably having severe depression which has resulted in this episode. I have discussed with the daughter that she needs to be started on antidepressant medication. She a lso needs to be seen by Psychiatry as an outpatient to undergo counseling therapy. She will benefit from having short term rehabilitation and then have outpatient psychiatry and psychology appointmen t to address her depression. There is no further neurological workup needed from my standpoint. I have spent approximately 25 minutes of this total visit time for about discussion and counseling. Thank you for the consultation.
[2017-06-06] MEDS: Enoxaparin Sodium 40 MG/0.4 ML SYRINGE SC SCH (22:02)
[2017-06-06] MEDS ORDERED: ALPRAZolam 0.25 MG TAB PO SCH (22:45)
[2017-06-07] MEDS: Levothyroxine Sodium 88 MCG TAB PO SCH (05:27)
[2017-06-07] MEDS: Docusate 100 MG CAP PO SCH ×2 (08:23→21:38)
[2017-06-07] MEDS: levETIRAcetam 500 MG TAB PO SCH ×2 (08:24→21:39)
[2017-06-07] MEDS: Folic Acid 1 MG TAB PO SCH (08:25)
[2017-06-07] MEDS: Aspirin 81 mg Enteric Coated Tablet PO SCH (08:25)
[2017-06-07] MEDS ORDERED: cloNIDine HCl 0.1 MG TAB PO PRN (10:14)
[2017-06-07] MEDS ORDERED: Nitroglycerin 2% Ointment 1 INCH/1 GM Packet TOP PRN (10:14)
--- NOTE | 2017-06-07 10:52 | PDOC.PN ---
- Subjective Encounter Start Date: 06/07/17 Encounter Start Time: 10:20 Patient seen and examined. No new complaints. No overnight events. No new focal weakness. LUE strength improving. - Objective Resuscitation Status: Resuscitation Status FULL:Full Resuscitation MAR Reviewed: Yes Vital Signs & Weight: Vital Signs (12 hours) Temp Pulse Resp BP BP Pulse Ox 06/07/17 07:34 97.8 F 66 16 117/58 L 98 06/07/17 04:38 95 06/07/17 04:13 97.9 F 63 16 122/57 L 95 06/07/17 00:13 98.2 F 65 16 136/60 95 Weight Admit Weight 186 lb Weight 217 lb 9.6 oz Most Recent Monitor Data Heart Rate from ECG 68 NIBP 162/72 NIBP BP-Mean 122 Respiration from ECG 18 SpO2 99 I&O: 06/06/17 06/07/17 06/08/17 06:59 06:59 06:59 Intake Total 1140 480 Output Total 2060 4400 Balance -920 -3920 Result Diagrams: 06/04/17 06:31 06/06/17 04:34 Additional Labs: Accuchecks 06/07/17 06/07/17 06/07/17 08:18 05:22 00:16 POC Glucose 125 H 118 H 130 H 06/06/17 06/06/17 06/06/17 20:14 17:04 10:57 POC Glucose 150 H 225 H 173 H EKG Reviewed by me: Yes (Tele SR) Phys Exam - Physical Examination Constitutional: NAD Respiratory: no wheezing, no rhonchi Cardiovascular: RRR, no rub Gastrointestinal: soft, non-tender, positive bowel sounds Musculoskeletal: no edema Neurological: moves all 4 limbs LLE 2/5 Psychiatric: A&O x 3 Dx/Plan - Plan cont current plan of care, DVT proph w/lovenox, DVT proph w/SCDs IMPRESSION: 1. Suspected acute cerebrovascular accident, status post TPA. MRI of the brain was negative. on Aspirin with statins. 2. Diabetes mellitus type 2. on sliding scale. 3. Multiple electrolyte imbalance including hypokalemia, hypophosphatemia, and hypomagnesemia. replaced 4. Dehydration. improved. 5. Swallow dysfunction. on modified diet. 7. Obesity with a BMI 35. 8. Hypertension. on Toprol-XL 9. Depression. on Prozac 10. Chronic obstructive pulmonary disease. on nebulizer treatment. 11. Seizure disorder. on Keppra. 12. Chronic pain syndrome. 13. Hypothyroidism, on levothyroxine. 14. History of drug-induced Parkinson's disease. 15. Degenerative joint disease. 16. Sarcoidosis. 17. Obstructive sleep apnea. 18. Gastroesophageal reflux disease. 19. Physical deconditioning. 20. Chronic nonhealing wound from the hernia surgery. Wound Care following. PLAN: * Neuro input appreciated * Cont ASA/Statins * Cont other home meds as below * Cont therapy * DC to Rehab in AM if stable Review of Systems - Review of Systems Constitutional: negative: Fever, Chills, Sweats, Weakness, Malaise, Other Respiratory: negative: Cough, Dry, Shortness of Breath, Hemoptysis, SOB with Excertion, Pleuritic Pain, Sputum, Wheezing Cardiovascular: negative: Chest Pain, Palpitations, Orthopnea, Paroxysmal Noc. Dyspnea, Edema, Light Headedness, Other Gastrointestinal: negative: Nausea, Vomiting, Abdominal Pain, Diarrhea, Constipation, Melena, Hematochezia, Other - Medications/Allergies Allergies/Adverse Reactions: Allergies Allergy/AdvReac Type Severity Reaction Status Date / Time No Known Allergies Allergy Unverified 06/04/17 09:14 Medications: Current Medications Acetaminophen (Tylenol) 650 mg PO Q6H PRN PRN Reason: Headache/Fever or Pain Last Admin: 06/04/17 22:17 Dose: 650 mg Acetaminophen (Tylenol) 650 mg RI Q6H PRN PRN Reason: Headache/Fever or Pain Albuterol/Ipratropium (Duoneb) 3 ml NEB [id number] PRN PRN Reason: SOB &/or Wheezing Artificial Tears (Tears Naturale) 0 drop EA EYE PRN PRN PRN Reason: Dry Eyes Aspirin (Ecotrin) 81 mg PO DAILY [facility] Last Admin: 06/07/17 08:25 Dose: 81 mg Bisacodyl (Dulcolax) 10 mg RI DAILYPRN PRN PRN Reason: Constipation Calcium Carbonate (Tums) 1,000 mg PO Q4H PRN PRN Reason: Heartburn or Indigestion Clonidine HCl (Catapres) 0.1 mg PO Q4H PRN PRN Reason: Systolic BP > 180 Dextrose/Water (Dextrose 50%) 25 gm SLOW IVP PRN PRN PRN Reason: Hypoglycemia Docusate Sodium (Colace) 100 mg PO BID [facility] Last Admin: 06/07/17 08:23 Dose: Not Given Enoxaparin Sodium (Lovenox) 40 mg SC 2100 [facility] Last Admin: 06/06/17 22:02 Dose: 40 mg Fluoxetine HCl (Prozac) 20 mg PO HS [facility] Last Admin: 06/06/17 22:02 Dose: 20 mg Folic Acid (Folvite) 5 mg PO DAILY [facility] Last Admin: 06/07/17 08:25 Dose: 5 mg Glipizide (Glucotrol) 5 mg PO BID [facility] Glucagon (Glucagon) 1 mg IM PRN PRN PRN Reason: Hypoglycemia Dextrose/Water (D5w) 1,000 mls @ 0 mls/hr IV .Q0M PRN; As Directed PRN Reason: Hypoglycemia Insulin Human Regular (Humulin R) 0 units SC .MILD SLIDING SCALE PRN PRN Reason: Mild Correctional Scale Last Admin: 06/06/17 00:23 Dose: 2 unit Levetiracetam (Keppra) 500 mg PO BID [facility] Last Admin: 06/07/17 08:24 Dose: 500 mg Levothyroxine Sodium (Synthroid) 88 mcg PO 0600 [facility] Last Admin: 06/07/17 05:27 Dose: 88 mcg Metoprolol Succinate (Toprol Xl) 25 mg PO BID [facility] Last Admin: 06/07/17 08:25 Dose: 25 mg Nitroglycerin (Nitrostat) 0.4 mg PO Q5MIN PRN PRN Reason: Chest Pain Nitroglycerin (Nitro-Bid 2% Ointment) 0.5 inch TOP Q8HR PRN PRN Reason: SBP Greater Than 180 Ondansetron HCl (Zofran Odt) 4 mg PO Q6H PRN PRN Reason: Nausea/Vomiting Ondansetron HCl (Zofran) 4 mg IVP Q6H PRN PRN Reason: Nausea/Vomiting Pneumococcal Polyvalent Vaccine (Pneumovax 23) 0.5 ml IM .ONCE ONE Stop: 06/07/17 12:01 Rosuvastatin Calcium (Crestor) 10 mg PO HS [facility] Last Admin: 06/06/17 22:02 Dose: 10 mg
[2017-06-07] MEDS ORDERED: FLU VACC TS2017-18 (>65YR) 0.5 ML SYRINGE IM ONE (12:00)
[2017-06-07] MEDS: glipiZIDE 5 MG TAB PO SCH (16:04)
[2017-06-07] MEDS: FLUoxetine HCl 20 MG CAP PO SCH (21:39)
[2017-06-07] MEDS: Enoxaparin Sodium 40 MG/0.4 ML SYRINGE SC SCH (21:39)
[2017-06-07] MEDS: Acetaminophen 325 MG TAB PO PRN (23:26)
[2017-06-08] MEDS ORDERED: HYDROcodone/Acetaminophen 10/325 mg Tablet PO SCH (01:30)
[2017-06-08 05:10] LABS: #Basophils 0.1 thou/uL (0.0-0.2); #Eosinphils 0.6 thou/uL (0.0-0.7); #Lymphocytes 3.4 thou/uL (1.20-3.40); #Monocytes 0.8 thou/uL (0.11-0.59); #Neutrophils 3.8 thou/uL (1.40-6.50); %Basophils 1.3 % (0.0-1.0); %Eosinophils 7.2 % (0.0-10.0); Hematocrit 39.2 % (36.0-47.0); Mean Platelet Volume 8.1 fL (7.4-10.4); Red Blood Cell (RBC) Count 3.96 mill/uL (4.20-5.40); White Blood Cell (WBC) Count 8.7 thou/uL (4.8-10.8)
[2017-06-08] MEDS: Levothyroxine Sodium 88 MCG TAB PO SCH (05:30)
[2017-06-08 05:37] LABS: Anion Gap 10 mmol/L (10-20); BUN (Urea Nitrogen) 14 mg/dL (9.8-20.1); Calc. Creatinine Clearance 94 mL/min (70-130); Calcium 8.6 mg/dL (7.8-10.44); Carbon Dioxide 21 mmol/L (23-31); Chloride 110 mmol/L (98-107); Estimated GFR-MDRD 65; Magnesium 1.6 mg/dL (1.6-2.6); Phosphorus 3.9 mg/dL (2.3-4.7)
[2017-06-08] MEDS: Folic Acid 1 MG TAB PO SCH (10:11)
[2017-06-08] MEDS: Aspirin 81 mg Enteric Coated Tablet PO SCH (10:11)
[2017-06-08] MEDS: levETIRAcetam 500 MG TAB PO SCH (10:12)
[2017-06-08] MEDS: glipiZIDE 5 MG TAB PO SCH ×2 (10:12→16:58)
[2017-06-08] MEDS: Docusate 100 MG CAP PO SCH (10:14)
--- NOTE | 2017-06-08 14:52 | DIS ---
DISCHARGE DISPOSITION: Inpatient rehabilitation. FOLLOWUP: 1. Follow up with primary care physician, Dr. Levin in 1 week. 2. Follow up with Neurology, Dr. Hyatt in 2-3 weeks. INPATIENT CONSULTANTS: Neurology, Dr. Dominguez and Dr. Hyatt. The patient was seen and examined on the day of discharge. Denies any new complaints. No chest flash n, shortness of breath, palpitations reported. No new focal neurologic deficit reported. ALLERGIES: No known drug allergies. DISCHARGE MEDICATIONS: Same as admission medications: 1. Aspirin 81 mg daily. 2. Crestor 10 mg at bedtime. 3. Albuterol inhaler as needed. 4. Tessalon Perles as needed. 5. Nexium 20 mg daily. 6. Prozac 20 mg at bedtime. 7. Folic acid 5 mg daily. 8. [place] as needed. 9. Levothyroxine 88 mcg daily. 10. Linagliptin 5 mg daily. 11. Melatonin 3 mg at bedtime. 12. Toprol-XL 25 mg b.i.d. 13. Glipizide 5 mg b.i.d. 14. Keppra 500 mg b.i.d. 15. Metformin 500 mg every morning. BRIEF HOSPITAL COURSE: The patient is a 71-year-old female with diabetes mellitus type 2, hypertens ion, and hyperlipidemia, who presented to the emergency room with stroke-like symptoms. Please refe r to the history and physical dated 06/04/2017 for further details. The patient was admitted to the Intensive Care Unit with a diagnosis of acute CVA, requiring TPA in the emergency room. The patient was seen by Neurology, Dr. Dominguez initially and later on by Dr. Brett Hyatt as second opinion. She was also evaluated by Critical Care, Dr. Raya during the Intensi ve Care Unit stay. Post-TPA, patient was monitored in the Intensive Care Unit for 24 hours. She wa s then transferred to the stroke unit. MRI of the brain was negative for acute CVA. CT angiogram o f the head and neck was negative for significant stenosis. An echocardiogram was done that showed l eft ventricular ejection fraction of 60-65% without any left ventricle thrombus. The patient has be en cleared by consultants for discharge. Acute cerebrovascular accident is probably conversion diso rder versus psychogenic per Neurology. FINAL DIAGNOSES: 1. Suspected acute cerebrovascular accident, status post TPA. 2. Diabetes mellitus type 2. 3. Multiple electrolyte imbalance on admission. The patient had hypokalemia, hypophosphatemia, and hypomagnesemia, which has been corrected. Her potassium on admission was 2.8 with magnesium 1.4, a nd phosphorus 1.7. 4. Dehydration, resolved. 5. Obesity with BMI 40.1 (morbid obesity. 6. Hypertension. 7. Depression without any suicidal ideation. 8. Chronic obstructive pulmonary disease. 9. Seizure disorder. 10. Chronic pain syndrome. 11. Hypothyroidism. 12. Degenerative joint disease. 13. History of drug-induced Parkinson disease. Reglan was discontinued in March of this year when s he was admitted to [facility]. 14. History of sarcoidosis. 15. Obstructive sleep apnea. 16. Gastroesophageal reflux disease. 17. Physical deconditioning. 18. Chronic nonhealing wound from the hernia surgery. 19. Claustrophobia. Plan of care was discussed with the patient and the family at the bedside. They stated jeovanyin g. Total time coordinating the discharge of this patient was 38 minutes.
[2017-06-08 16:12] VITALS: BP 140/66; TEMP 98
== END 2017-06-08 17:38 | DRG 62 ==
LOC: ERS 06:12 → CCU 07:14 → 2SE 06-05 14:53
PROVIDERS: ADMIT Internal Medicine; ATTEND Internal Medicine
DX: I63.9 Cerebral infarction, unspecified (principal); G81.94 Hemiplegia, unspecified affecting left nondominant side; J44.9 Chronic obstructive pulmonary disease, unspecified; T81.89XA Other complications of procedures, not elsewhere classified, initial encounter; Z68.41 Body mass index [BMI] 40.0-44.9, adult; E86.0 Dehydration; I10 Essential (primary) hypertension; R47.01 Aphasia; R29.810 Facial weakness; E11.9 Type 2 diabetes mellitus without complications; E78.5 Hyperlipidemia, unspecified; G47.33 Obstructive sleep apnea (adult) (pediatric); E03.9 Hypothyroidism, unspecified; G40.909 Epilepsy, unspecified, not intractable, without status epilepticus; M19.90 Unspecified osteoarthritis, unspecified site; D86.9 Sarcoidosis, unspecified; F40.240 Claustrophobia; Z98.49 Cataract extraction status, unspecified eye; Z90.710 Acquired absence of both cervix and uterus; Z90.81 Acquired absence of spleen; E87.6 Hypokalemia; E83.39 Other disorders of phosphorus metabolism; E83.42 Hypomagnesemia; E66.9 Obesity, unspecified; F32.9 Major depressive disorder, single episode, unspecified; K21.9 Gastro-esophageal reflux disease without esophagitis; R47.1 Dysarthria and anarthria; F44.7 Conversion disorder with mixed symptom presentation; Z86.73 Personal history of transient ischemic attack (TIA), and cerebral infarction without residual deficits
CPT/HCPCS: 0042T; 36415; 36416; 51702; 70450; 70496; 70498; 70551; 74022; 80048; 80053; 80061; 80069; 81003; 82553; 83735; 84100; 84484; 85025; 85610; 85730; 90471; 90732; 93005; 93306; 94760; 95816; 95819; 96365; 96376; G0009; G8978-GP-CM; G8979-GP-CL; G8987-GO-CK; G8988-GO-CI; G8996-GN-CJ; G8996-GN-CK; G8997-GN-CI; G8997-GN-CJ; J1650; J1815; J1953; J2060; J2405; J2997; J3475; J7050; S0028

== ENCOUNTER 2018-02-28 13:22 | Inpatient (IN) | payer MEDICARE, OTHER, MEDICAID ==
[~2018-02-28 13:22] MED LIST: ISOVUE-370 76%-LOCM 1 ML ONE
--- NOTE | 2018-02-28 13:43 | CT ---
CT BRAIN WITHOUT CONTRAST: COMPARISON: 06/04/17. HISTORY: Stroke alert. Slurred speech. This began at midnight last night. TECHNIQUE: Multiple contiguous axial images were obtained in a CT of the brain without contrast. FINDINGS: There are a few scattered hypodensities in the subcortical and periventricular white matter, likely s econdary to small-vessel ischemic disease. No large confluent infarction is seen. There is no evide nce of hydrocephalus, intracranial hemorrhage, or extraaxial fluid collection. The calvarium and overlying soft tissues are unremarkable. The visualized paranasal sinuses and mast oid air cells are well aerated. IMPRESSION: No evidence of acute intracranial abnormality. Dr. Connell notified of the findings at 1:31 p.m. on 02/28/18. CODE CR POS: LAURI
[2018-02-28 13:44] LABS: Hemoglobin 11.4 g/dL (12.0-16.0); Mean Corpuscular HGB CONC 33.3 g/dL (32.0-36.0); Mean Corpuscular Hemoglobin 32.2 pg (27.0-31.0); Mean Corpuscular Volume 96.5 fL (78.0-98.0); Mean Platelet Volume 8.8 fL (7.4-10.4); Platelet Count 362 thou/uL (130-400); RBC Distribution Width 19.6 % (11.5-14.5); Red Blood Cell (RBC) Count 3.53 mill/uL (4.20-5.40); White Blood Cell (WBC) Count 7.6 thou/uL (4.8-10.8)
[2018-02-28 13:45] LABS: INR-International Normal Ratio 1.5; PTT 39.1 SEC (22.9-36.1); Prothrombin Time 18.3 SEC (12.0-14.7)
[2018-02-28 13:55] LABS: CKMB 0.8 ng/mL (0-6.6); Troponin I Less than 0.010 ng/mL (< 0.028)
[2018-02-28 13:58] LABS: Albumin 2.5 g/dL (3.4-4.8)
--- NOTE | 2018-02-28 13:58 | CT ---
CTA OF THE NECK WITH CONTRAST CTA OF THE HEAD WITH CONTRAST: HISTORY: Stroke alert. Blown right pupil and slurred speech. Unknown deficits from prior infarction. TECHNIQUE: 1. Multiple contiguous axial images were obtained in a CTA of the neck with contrast. Three-D sagit milagros and coronal MIP reformats were performed. 2. Multiple contiguous axial images were obtained in a CTA of the head with contrast. Three-D and s agittal MIP reformats were performed. FINDINGS: CTA NECK: The great vessels are unremarkable. Mild atherosclerotic disease is seen in the aorta. The subclavi an veins are patent without significant narrowing. The common carotid arteries have a normal origin from the aortic arch without significant atherosclerotic disease. The common carotid arteries bifurcate in a normal-appearing internal carotid artery and external nunn tid artery. No significant atherosclerotic disease is seen in either internal carotid artery per AG CET criteria. Both vertebral arteries show no significant atherosclerotic disease and are patent. No mucosal abnormality is seen in the neck. No cervical adenopathy is seen. Degenerative changes ar e seen in the spine. CTA HEAD: There is mild diffuse atherosclerotic disease in the cavernous portion of both internal carotid arter ies. The intracranial internal carotid arteries are normal in caliber. These branch into normal-ciaran earing anterior and middle cerebral arteries. There is no evidence of aneurysmal dilatation, focal s tenosis, or occlusion in the anterior circulation. Both vertebral arteries form a normal-appearing basilar artery. The posterior cerebral arteries and cerebellar arteries are patent. There is no evidence of focal stenosis, occlusion, or aneurysmal dil atation in the posterior circulation. IMPRESSION: 1. No significant CTA neck abnormality. 2. No significant intracranial vascular abnormality. Dr. Connell was notified of the findings at 1:44 p.m. on 02/28/18. CODE CR POS: [facility]
[2018-02-28 13:59] LABS: Chloride 109 mmol/L (98-107); Potassium 4.1 mmol/L (3.5-5.1); Sodium 140 mmol/L (136-145)
[2018-02-28 14:00] LABS: Calcium 8.5 mg/dL (7.8-10.44)
[2018-02-28 14:01] LABS: Globulin 6.1 g/dL (2.4-3.5); Glucose 106 mg/dL (80-115); Protein, Total 8.6 g/dL (6.0-8.3)
[2018-02-28 14:02] LABS: Anion Gap 15 mmol/L (10-20); Carbon Dioxide 20 mmol/L (23-31)
[2018-02-28 14:03] LABS: Alkaline Phosphatase 207 U/L (40-150); Bilirubin, Total 1.5 mg/dL (0.2-1.2)
[2018-02-28 14:04] LABS: Calc. Creatinine Clearance 0 mL/min (70-130); Estimated GFR-MDRD 69
[2018-02-28 14:05] LABS: BUN (Urea Nitrogen) 12 mg/dL (9.8-20.1)
[2018-02-28 14:06] LABS: ALT (SGPT) 14 U/L (8-55); AST (SGOT) 36 U/L (5-34)
[2018-02-28 14:14] LABS: MDiff Complete? YES
[2018-02-28 14:15] LABS: Anisocytosis SLIGHT = 6-15 cells (100X) (0-5/hpf); Band 1 % (5-11); Eosinophils 1 % (0-10); Lymphocytes 42 % (21-51); Monocytes 7 % (0-10); Neutrophil 49 % (42-75); PLT Morphology Comment Appears Adequate
[2018-02-28] MEDS ORDERED: Aspirin 300 MG Suppository ONE (15:34)
--- NOTE | 2018-02-28 17:17 | HP ---
DATE OF ADMISSION: 02/28/2018 PRIMARY CARE PHYSICIAN: Pepper Kamara. CHIEF COMPLAINT: Stroke-like symptoms. HISTORY OF PRESENT ILLNESS: The patient is a 72-year-old female with diabetes mellitus, type 2; hype rtension; seizure disorder and depression; was brought into the emergency room with stroke like sympt oms. Last admission to this facility was in 05/2017 for suspected acute CVA status post TPA. She wa s discharged to inpatient rehabilitation at that time. Her neurologic deficit completely resolved. She currently lives at home with her family members. The patient woke up at 11 a.m. with stroke like symptoms. Her speech was slurry with some left-sided weakness. There was no seizure or sensory deficits reported. There was no facial drooping. She de nies any headache, fever, chills or loss of consciousness. The patient is a poor historian and histo ry was obtained with other family member at the bedside. In the emergency room, initial vital signs showed temperature 98.5 with respirations of 17, pulse rat e of 93 with a blood pressure 154/81 with O2 saturation 98% on room air. Her EKG showed sinus rhythm . CT scan of the brain was negative. CT angiogram of the head and neck was negative for significant abnormality. She received aspirin in the emergency room. PAST MEDICAL HISTORY: 1. Diabetes mellitus, type 2. 2. Seizure disorder. 3. Chronic obstructive pulmonary disease. 4. Hypertension. 5. Depression 6. Chronic pain syndrome. 7. Hypothyroidism. 8. 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 Reglan was discontinued in 03/2017. 9. History of sarcoidosis. 10. Obstructive sleep apnea. 11. GERD. 12. Claustrophobia. 13. Suspected acute CVA, status post TPA in 05/2017. PAST SURGICAL HISTORY: 1. Appendectomy. 2. Carpal tunnel surgery. 3. Cataract surgery. 4. Right elbow surgery. 5. Hip surgery. 6. Hysterectomy. 7. Shoulder surgery. 8. Splenectomy. 9. Wrist surgery. ALLERGIES: The patient is allergic to PROPOXYPHENE that causes itching. CURRENT HOME MEDICATIONS: Family to bring all of her medications later today. The patient does not remember any of her home medications. SOCIAL HISTORY: No smoking, alcohol or drug use. She lives with her family. She is FULL CODE and m akes her own decision with the help of her family. FAMILY HISTORY: Positive for father with COPD and tuberculosis. Diabetes runs in her family. REVIEW OF SYSTEMS: Cannot be reliably obtained from the patient due to current cognitive status. PHYSICAL EXAMINATION: VITAL SIGNS: Temperature 98.5, respirations 17, pulse 93, blood pressure 154/81 with O2 saturation 9 8% on room air. GENERAL: A 72-year-old female with some confusion. Anxious appearing. HEENT: Head atraumatic, normocephalic. Sclerae are anicteric. Moist mucous membranes. No oral les ion. NECK: Supple, no JVD appreciated. No carotid bruit. LUNGS: Clear to auscultation bilaterally with scattered rales at bases. HEART: S1, S2 present. Regular rate and rhythm. No murmur, rubs, or gallops appreciated. ABDOMEN: Soft. Bowel sounds present. EXTREMITIES: No edema or calf tenderness. NEUROLOGIC: Could not be reliably done due to current cognitive status. The patient is generally we ak. Has some slurring of speech. Tone was normal. Gait was not assessed. PSYCHIATRY: As discussed above. SKIN: Warm and dry. LYMPH NODES: No palpable lymph nodes in the neck. PERIPHERAL VASCULAR: Radial pulses palpable bilaterally. MUSCULOSKELETAL: No joint swelling or tenderness. LABORATORY DATA AND IMAGIN. CBC showed WBC of 7.6 with hemoglobin 11.4, hematocrit 34.1, platelet of 362. INR 1.5, PT of 18. 3. 2. Chemistries showed sodium 140, potassium 4.1, chloride 109, bicarbonate 20, BUN of 12, creatinine 0.82. 3. Albumin of 2.5 with serum protein 8.6, total bilirubin 1.5, AST 36. 4. CT scan of the brain was negative for acute findings. 5. CT angiogram of the head and neck was negative. 6. EKG by my review showed sinus rhythm with prolonged QT interval at 539 milliseconds. IMPRESSION: 1. Suspected acute cerebrovascular accident. 2. Diabetes mellitus, type 2. 3. Hypertension. 4. Depression without any suicidal ideation. 5. Chronic obstructive pulmonary disease. 6. Obstructive sleep apnea. 7. Gastroesophageal reflux disease. 8. History of drug-induced Parkinson disease. 9. Chronic pain syndrome. 10. Degenerative joint disease. 11. Claustrophobia. 12. Chronic kidney disease, stage 2. 13. Abnormal liver function tests of unclear etiology. 14. Moderate protein calorie malnutrition. PLAN: The patient will be monitored in the stroke unit. Her echocardiogram last year showed left ve ntricular ejection fraction of 60% to 65%. She will be started on aspirin. I confirmed with the caty ocampo that patient is not taking aspirin at home. Other family member to bring all of her medication merna nicholson later today. We will also consult Neurology. She was started on insulin sliding scale. We w ill consult Speech Therapy, Physical Therapy and Occupational Therapy. Plan of care was discussed with the patient and the family at the bedside. They stated understanding .
[2018-02-28 17:27] LABS: Magnesium 1.4 mg/dL (1.6-2.6); Phosphorus 3.2 mg/dL (2.3-4.7)
[2018-02-28] MEDS ORDERED: Acetaminophen 325 MG TAB PO PRN ×2 (17:39→17:50)
[2018-02-28] MEDS ORDERED: Ondansetron HCl/PF 4 MG/2 ML Vial IVP PRN ×2 (17:39→17:50)
[2018-02-28] MEDS ORDERED: Ondansetron ODT 4 MG TAB SL PRN (17:39)
[2018-02-28] MEDS ORDERED: Sodium Chloride 0.9% 1,000 ML IV SCH (17:39)
[2018-02-28] MEDS ORDERED: Dextrose 5% in Water 1,000 ML IV PRN (17:50)
[2018-02-28] MEDS ORDERED: Lorazepam 0.5 MG TAB PO SCH (17:50)
[2018-02-28] MEDS ORDERED: Ondansetron ODT 4 MG TAB PO PRN (17:50)
[2018-02-28] MEDS ORDERED: hydrALAZINE 20 MG/ML VIAL SLOW IVP PRN (17:50)
[2018-02-28] MEDS ORDERED: Insulin Regular 300 UNITS/3 ML VIAL SC PRN ×2 (17:50)
[2018-02-28] MEDS ORDERED: Dextrose 50% Abboject 50 ML SYRINGE SLOW IVP PRN (17:50)
[2018-02-28] MEDS ORDERED: Magnesium Sulfate 4 GM in Sodium Chloride 0.9% 250 ML 250 ML IVPB SCH (18:00)
[2018-02-28 18:19] VITALS: BMI 32.3
[2018-02-28] MEDS: Sodium Chloride 0.9% 1,000 ML IV SCH (19:40)
[2018-02-28] MEDS ORDERED: Atorvastatin Calcium 10 MG TAB PO SCH (21:00)
[2018-03-01 00:45] LABS: Bilirubin Negative (Negative); Blood, Urine Negative (Negative); Clarity CLEAR (Clear); Glucose, Urine (Dipstick) Negative (Negative); Leukocyte Small (Negative); Nitrite Negative (Negative); Protein, Urine (Dipstick) Negative (Neg-Trace); Specific Gravity, Urine 1.025 (1.002-1.036)
[2018-03-01 00:47] LABS: Bacteria/HPF None Seen HPF (None Seen); Hyaline Casts/LPF 0-3 HYALINE CAST LPF (0-3 Hyaline); Pathc Cast-AUWi Flag 0.58 (0-2.49); Squamous Epithelial 0-3 HPF (0-3)
[2018-03-01] MEDS: Famotidine 20 MG TAB PO SCH ×2 (04:54→08:41)
[2018-03-01] MEDS: Docusate 100 MG CAP PO SCH ×2 (04:54→08:41)
[2018-03-01 06:11] LABS: ALT (SGPT) 17 U/L (8-55); AST (SGOT) 30 U/L (5-34); Albumin 2.3 g/dL (3.4-4.8); Alkaline Phosphatase 169 U/L (40-150); Anion Gap 11 mmol/L (10-20); BUN (Urea Nitrogen) 11 mg/dL (9.8-20.1); Bilirubin, Total 1.7 mg/dL (0.2-1.2); Calc. Creatinine Clearance 93 mL/min (70-130); Calcium 8.5 mg/dL (7.8-10.44); Carbon Dioxide 22 mmol/L (23-31); Cardiac Risk 7.3 (Less than 4.5); Chloride 113 mmol/L (98-107); Cholesterol 161 mg/dl (< 200 Desired); Estimated GFR-MDRD 84; Globulin 5.7 g/dL (2.4-3.5); Glucose 68 mg/dL (80-115); HDL Cholesterol 22 mg/dL (>60 Neg Risk); LDL Cholesterol, Calculated 121 mg/dL; Magnesium 2.1 mg/dL (1.6-2.6); Phosphorus 3.7 mg/dL (2.3-4.7); Potassium 3.5 mmol/L (3.5-5.1); Sodium 142 mmol/L (136-145); Triglycerides 91 mg/dL (Less than 150)
[2018-03-01 06:44] LABS: Hemoglobin 10.8 g/dL (12.0-16.0); Mean Corpuscular HGB CONC 31.8 g/dL (32.0-36.0); Mean Corpuscular Hemoglobin 30.8 pg (27.0-31.0); Mean Corpuscular Volume 96.6 fL (78.0-98.0); Mean Platelet Volume 8.2 fL (7.4-10.4); Platelet Count 341 thou/uL (130-400); RBC Distribution Width 19.3 % (11.5-14.5); Red Blood Cell (RBC) Count 3.52 mill/uL (4.20-5.40); White Blood Cell (WBC) Count 7.1 thou/uL (4.8-10.8)
[2018-03-01 06:45] LABS: Band 9 % (5-11); Eosinophils 6 % (0-10); Lymphocytes 40 % (21-51); MDiff Complete? YES; Monocytes 10 % (0-10); Neutrophil 34 % (42-75); Target Cells MODERATE= 6-15 cells (100X) (0-1/hpf)
[2018-03-01] MEDS ORDERED: Enoxaparin Sodium 40 MG/0.4 ML SYRINGE SC SCH (09:00)
[2018-03-01] MEDS ORDERED: levETIRAcetam 500 MG TAB PO SCH (09:00)
[2018-03-01] MEDS ORDERED: Aspirin 325 mg Enteric Coated Tablet PO SCH (09:00)
--- NOTE | 2018-03-01 09:56 | MRI ---
BRAIN MRI WITHOUT CONTRAST: Date: 03-01-18 Comparison: 06-04-17 History: Slurred speech, recent stroke alert. Technique: Multiplanar, multisequence MR imaging of the brain is provided without contrast. FINDINGS: The diffusion weighted imaging demonstrates no evidence for acute infarction. The axial gradient echo imaging demonstrates no evidence for intracranial hemorrhage. There are multiple small foci of increased T2 and FLAIR signal within the periventricular, deep, and subcortical white matter, evidence of small vessel disease. This has progressed since the 06-04-17 exa mination. Arterial flow voids at axial level of skull base appear unremarkable on the T2 weighted neri ging. Regional bone marrow signal intensity is within normal limits. IMPRESSION: No evidence for acute infarction or intracranial hemorrhage. Evidence of small vessel ischemic diseas e, progressed since the prior exam. POS: [facility]
[2018-03-01 11:58] VITALS: TEMP 98
[2018-03-01] MEDS ORDERED: traMADol HCl 50 MG TAB PO PRN (14:39)
[2018-03-01] MEDS ORDERED: Gabapentin 300 MG CAP PO SCH (15:00)
[2018-03-01] MEDS: Sodium Chloride 0.9% 1,000 ML IV SCH (15:45)
[2018-03-01 16:36] VITALS: BP 174/81
[2018-03-01] MEDS ORDERED: FLUoxetine HCl 20 MG CAP PO SCH (21:00)
[2018-03-01] MEDS ORDERED: Rosuvastatin 10 MG TAB PO SCH (21:00)
[2018-03-02] MEDS ORDERED: Levothyroxine Sodium 88 MCG TAB PO SCH (06:00)
--- NOTE | 2018-03-02 11:08 | DIS ---
DATE OF DISCHARGE: 03/01/2018 DISPOSITION: Inpatient rehabilitation. FOLLOWUP: Follow up with primary care physician at [facility] in 1 week. Follow up with Neurology, Dr. Dominguez in 2 weeks. The patient was seen and examined on the day of discharge. Denies any new complaints. No chest pain , shortness of breath, palpitations reported. DISCHARGE MEDICATIONS: 1. Aspirin 81 mg daily. 2. All other home medications were resumed. The patient was advised to restart metformin after [address] angiogram in the emergency room. BRIEF HOSPITAL COURSE: The patient is a 72-year-old female with diabetes mellitus type 2, hypertensi on, seizure disorder and depression, who presented to the emergency room with stroke-like symptoms. Please refer to the history and physical dated 02/28/2018 for further details. The patient was admitted to the stroke unit with a diagnosis of suspected acute CVA. CT angiogram of the head and neck was negative. MRI of the brain showed small vessel ischemic disease that has prog ressed since the prior exam. Her NIH on the day of discharge is 9. She still has deficits which are improving. She will be discharged to inpatient rehabilitation. FINAL DIAGNOSES: 1. Suspected small vessel acute cerebrovascular accident. 2. Diabetes mellitus type 2. 3. Hypertension. 4. Depression. 5. Chronic obstructive pulmonary disease. 6. Hypomagnesemia with magnesium 1.4 on admission, replaced. 7. Abnormal liver function tests due to recent diagnosis of cirrhosis per patient report. 8. Obstructive sleep apnea. 9. Gastroesophageal reflux disease. 10. History of drug-induced Parkinson disease. 11. Chronic pain syndrome. 12. Degenerative joint disease. 13. Claustrophobia. 14. Chronic kidney disease stage 2. 15. Moderate protein calorie malnutrition. 16. Obesity with a BMI 32.3. 17. Chronic normocytic normochromic anemia. Total time coordinating the discharge of this patient was 38 minutes.
--- NOTE | 2018-03-02 13:20 | PQF ---
MINGO ALVAERZ MALIK MD [id number] [facility] [id number] CLINICAL DOCUMENTATION CLARIFICATION FORM: POST DISCHARGE DATE: 03/02/18 ATTN: Dr. Rodriguez Please exercise your independent, professional judgment in responding to the clarification form. Clinical indicators are provided on the bottom of this form for your review Per neuro progress note: Episode of generalized weakness likely secondary to cardiovascular event. Neuro w/u was negative. In your professional opinion, please clarify the diagnosis of cardiovascular event or specify a final diagnosis: Please check appropriate box(s): [ x ] Final Diagnosis Suspectected small vessel CVA [ ] Unable to determine In addition, please specify: Present on Admission (POA): [ x ] Yes [ ] No [ ] Unable to determine For continuity of documentation, please document condition throughout progress notes and discharge summary. Thank You. CLINICAL INDICATORS - SIGNS / SYMPTOMS / LABS Per H&P: Patient admitted with stroke-like symptoms: Slurred speech with some left-sided weakness. Suspected acute cerebrovascular accident. Per Neuro progress note: Episode of generalized weakness likely secondary to cardiovascular event. Neuro w/u was negative. RISK FACTORS Per H&P: Hypertension. Suspected acute CVA, status post TPA in 05/2017. TREATMENTS: Per H&P: Aspirin was given in the Emergency Room. Monitor in the stroke unit. (This form is maintained as a part of the permanent medical record) 2014 [employer]. All Rights Reserved Yina [email or web address] [phone] MTDD
== END 2018-03-01 18:49 | DRG 65 ==
LOC: ERS 13:22 → 2SE 17:25
PROVIDERS: ADMIT Internal Medicine; ATTEND Internal Medicine
DX: I63.9 Cerebral infarction, unspecified (principal); E44.0 Moderate protein-calorie malnutrition; G81.94 Hemiplegia, unspecified affecting left nondominant side; J44.9 Chronic obstructive pulmonary disease, unspecified; E11.22 Type 2 diabetes mellitus with diabetic chronic kidney disease; I12.9 Hypertensive chronic kidney disease with stage 1 through stage 4 chronic kidney disease, or unspecified chronic kidney disease; N18.2 Chronic kidney disease, stage 2 (mild); F32.9 Major depressive disorder, single episode, unspecified; G47.33 Obstructive sleep apnea (adult) (pediatric); K21.9 Gastro-esophageal reflux disease without esophagitis; G89.4 Chronic pain syndrome; F40.240 Claustrophobia; G40.909 Epilepsy, unspecified, not intractable, without status epilepticus; D64.9 Anemia, unspecified; E66.9 Obesity, unspecified; M19.90 Unspecified osteoarthritis, unspecified site; K74.60 Unspecified cirrhosis of liver; E83.42 Hypomagnesemia; R47.81 Slurred speech; Z68.32 Body mass index [BMI] 32.0-32.9, adult; Z88.8 Allergy status to other drugs, medicaments and biological substances; Z79.84 Long term (current) use of oral hypoglycemic drugs; Z79.82 Long term (current) use of aspirin; Z79.899 Other long term (current) drug therapy
CPT/HCPCS: 36415; 36416; 70450; 70496; 70498; 70551; 80053; 80061; 81001; 82553; 83735; 84100; 84484; 85025; 85610; 85730; 93005; A4353; G8978-GP-CM; G8979-GP-CL; G8987-GO-CK; G8988-GO-CI; G8996-GN-CI; G8997-GN-CI; J1650; J3475; J7050

== ENCOUNTER 2018-03-11 05:47 | Emergency (ER) | payer MEDICAID, MEDICARE, OTHER, SELFPAY ==
[2018-03-11] MEDS ORDERED: Acetaminophen 500 MG TAB ONE (06:42)
--- NOTE | 2018-03-11 07:40 | RAD ---
2 VIEWS LEFT HIP: Date: 03/11/18 HISTORY: Fall with left hip pain. FINDINGS: Two views of the left hip show the patient to be status post left hip arthroplasty without perihardwa re lucency or fracture. No focal soft tissue swelling is seen. Vascular calcifications are present. IMPRESSION: Status post left hip arthroplasty without acute osseous abnormality. POS: [facility]
--- NOTE | 2018-03-11 07:41 | RAD ---
SINGLE VIEW OF THE PELVIS: COMPARISON: None. HISTORY: Fall while trying to get out of bed several hours ago with left hip pain. FINDINGS: A single view of the pelvis shows the patient to be status post left hip arthroplasty without perihar dware lucency or fracture. No focal soft tissue swelling is seen. IMPRESSION: No evidence of acute osseous abnormality. POS: [facility]
== END 2018-03-11 08:00 | disposition home or self-care (01) ==
LOC: ERS 05:47
DX: S70.02XA Contusion of left hip, initial encounter (principal); I10 Essential (primary) hypertension; F32.9 Major depressive disorder, single episode, unspecified; F41.9 Anxiety disorder, unspecified; K74.60 Unspecified cirrhosis of liver; Z79.82 Long term (current) use of aspirin; Z79.899 Other long term (current) drug therapy; Z79.84 Long term (current) use of oral hypoglycemic drugs; W06.XXXA Fall from bed, initial encounter
CPT/HCPCS: 72170